=== PATIENT | male | born 1935 | race Caucasian/White ===

== ENCOUNTER 2016-10-12 08:40 | Inpatient (IN) | payer OTHER ==
[~2016-10-12] VITALS: Ht 170.2 cm; Wt 72.7 kg
--- NOTE | ~2016-10-12 | HC ---
[facility] [place] [address] CONSULTATION Name: GIBBSCRISTAL Quinton Room #: 404-P [facility] IN M.R.#: [id number] Admission: 10/12/16 Attend Phys: Alida Mcintosh Discharge: Date of : 33 Report #: [id number] THIS REPORT FOR: //name// CC: Bryn Garcia DATE OF SERVICE: 10/12/2016 HISTORY OF PRESENT ILLNESS: The patient is an 81-year-old male with approximately an 8-week history of diarrhea and intermittent, crampy abdominal pain. He denies any blood in his stools. He apparently had antibiotics last month. He also has had a low-grade fever recently. He has had weight loss of about 10-15 pounds. He denies any nausea or vomiting currently. He was actually scheduled for a colonoscopy by myself on Friday, but due to use continued symptoms and recent fever, he was evaluated in the Emergency Room and has been admitted to Dr. Garcia. PAST MEDICAL HISTORY: Diabetes, history of pulmonary embolus, appendectomy, rectal fistula repair, history of blood clots, had been on Coumadin up until Friday and bilateral inguinal hernia repair. MEDICATIONS: [place]. Coumadin, again, last dose was on Friday. Loperamide p.r.n. ALLERGIES: To PREDNISONE, PERFUME and DYE. REVIEW OF SYSTEMS: As per HPI. SOCIAL HISTORY: He denies any tobacco or alcohol use. FAMILY HISTORY: Negative for colon cancer. PHYSICAL EXAMINATION: VITAL SIGNS: Temperature is 36.4, pulse 75, blood pressure 109/52 and respiratory rate is 16. GENERAL: He is alert and oriented x 3, in no acute distress. HEENT: Sclerae nonicteric. Oropharynx clear. NECK: Supple, without lymphadenopathy. CARDIOVASCULAR: Regular rate and rhythm. CHEST: Clear to auscultation bilaterally. ABDOMEN: Soft. He is mildly tender to palpation, nondistended, positive bowel sounds. EXTREMITIES: No cyanosis, clubbing or edema. LABORATORY DATA: WBC is ____, hemoglobin 14.0 and platelet count is 249. Sodium 130, potassium 3.2, chloride 96, bicarbonate 26, BUN 7, creatinine 0.9, [facility] [address] [place] [address] CONSULTATION Name: CRISTAL GIBBS Room #: 404-P [facility] IN [facility].#: [id number] Admission: 10/12/16 Attend Phys: Alida Mcintosh Discharge: Date of : 33 Report #: [id number] calcium 8.1, total bilirubin is 1.0, AST 17, ALT is 17, alkaline phosphatase 50, total protein 6.3, albumin 2.8 and lipase 114. INR is 2.5. CT scan of the abdomen and pelvis on admission today shows scattered fluid within the colon consistent with a history of diarrhea with some mild relative wall thickening and mucosal enhancement within the rectosigmoid area suggestive of a nonspecific colitis. ASSESSMENT AND PLAN: Chronic diarrhea. CT showing the possibility of a colitis in the rectosigmoid area. Would recommend proceeding with stool studies at this time. Continue to hold Coumadin. We will plan on colonoscopy in the near future. We will need his INR more towards normal. We will repeat INR tomorrow. If it remains elevated, may consider a small dose of vitamin K and possible colonoscopy on Friday. Thank you for allowing me to participate in his care. <ELECTRONICALLY SIGNED> By: Jesse Hallman MD 10/13/16 1217 1444 2331 Jesse Hallman MD /nt
--- NOTE | ~2016-10-12 | D ---
[facility] [place] [address] DISCHARGE SUMMARY Name: SAICRISTAL Quinton Room #: 404-P [facility] IN M.R.#: [id number] Admission: 10/12/16 Attend Phys: Alida Mcintosh Discharge: 10/17/16 Date of : 33 Report #: [id number] THIS REPORT FOR: //name// CC: Anjum Garcia FINAL DIAGNOSES: 1. Clostridium difficile colitis. 2. Hypercoagulable state. HOSPITAL COURSE: The patient was admitted with anorexia and diarrhea. GI service assessed him. He was diagnosed with C. diff colitis. Currently, the plan is medical treatment and defer endoscopy to a later time. With oral vancomycin, his symptoms improved. His stools had not returned to normal, but he was no longer having watery diarrhea with pain, but rather soft stools 2-3 times a day. He was tolerating a regular diet performing with physical therapy; however, because he still had some weakness in and out of bed and was having frequent bowel movements, he did not feel comfortable going home. Arrangements were made for assisted. PHYSICAL EXAMINATION: GENERAL: On the day of discharge, he was resting comfortably in bed with stable vital signs and afebrile. LUNGS: Clear. HEART: Regular. ABDOMEN: Soft. EXTREMITIES: Showed no edema. DISPOSITION: To be transferred to advanced assisted facility. I will follow his stay there. He will be on oral vancomycin for 2 weeks, Coumadin 2 mg a day, acidophilus, Tylenol, Zofran as needed. PT and OT to assess. <ELECTRONICALLY SIGNED> By: Oj Grady MD 10/18/16 0835 0903 1032 Oj Grady MD /nt
--- NOTE | ~2016-10-12 | H ---
[facility] [place] [address] HISTORY AND PHYSICAL Name: CRISTAL GIBBS Room #: 404-P ADM IN M.R.#: [id number] Admission: 10/12/16 Attend Phys: Alida Mcintosh Discharge: Date of : 33 Report #: [id number] THIS REPORT FOR: //name// CC: Anjum Garcia DATE OF SERVICE: 10/13/2016 CHIEF COMPLAINT: This is an 81-year-old male with diarrhea. HISTORY OF PRESENT ILLNESS: This is an 81-year-old gentleman who I have been following now for the last few weeks as an outpatient with diarrhea, weight loss and we were trying to get him to consent to sigmoidoscopy to make the diagnosis the reason for what was suspected to be colitis, but he has issues at home with his who is infirmed and he could not get this accomplished. He then called me over the weekend and said he was having fevers and chills, at which point I recommended admission. The patient has had some chronic diarrhea now for a couple of months and weight loss, no evidence of any GI blood loss. He is now complaining of some left lower quadrant abdominal pain. PAST MEDICAL HISTORY: Significant for past history of hypercoagulable states and he has been on chronic Coumadin for many, many years. He has had an appendectomy. He has had inguinal hernia repair bilaterally. He has also had some foot surgery and has some hyperglycemia. MEDICATIONS: List was only Coumadin. ALLERGIES: INCLUDE PREDNISONE, NOT SURE OF THE DETAILS OF THAT; FABRIC DYES AND PERFUME. FAMILY HISTORY: Noncontributory. SOCIAL HISTORY: He does not smoke or drink. He lives independently. He cares for his . REVIEW OF SYSTEMS: Otherwise, negative. PHYSICAL EXAMINATION: GENERAL: Shows him to be awake, alert, oriented. He is in no distress, but he looks weakened. VITAL SIGNS: Stable. HEENT: Otherwise, negative. NECK: Supple, without thyromegaly or adenopathy. CHEST: Clear. CARDIOVASCULAR: Shows a regular rate and rhythm without murmur. ABDOMEN: Soft. Bowel sounds are present. There is a little mild amount of left lower quadrant tenderness on palpation. There were no masses. There was [facility] [address] [place] [address] HISTORY AND PHYSICAL Name: CRISTAL GIBBS Room #: 404-P [facility] IN [facility].#: [id number] Admission: 10/12/16 Attend Phys: Alida Mcintosh Discharge: Date of : 33 Report #: [id number] no rebound tenderness. EXTREMITIES: No cyanosis, clubbing or edema. NEUROLOGIC: Nonfocal. LABORATORY PARAMETERS: Blood count and chemistry panel were negative. CT imaging confirms a suspicion for colitis in the sigmoid area. ASSESSMENT: This is an 81-year-old who has colitis and at this point seems most likely to be an inflammatory condition. Whether this represents ulcerative colitis or microscopic colitis is not clear. We need sigmoidoscopy in order to visualize the lining of the mucosa. This seems unlikely to be diverticulitis at this time. He is admitted, IV fluids. GI consult for endoscopy. <ELECTRONICALLY SIGNED> By: Anjum Garcia MD 10/16/16 1244 0743 1018 Anjum Garcia MD /nt
[~2016-10-12 08:40] MED LIST: ANTI-DIARRHEAL2 MG PO; COUMADIN 10MG T10 M1 PO; COUMADIN 1MG TAB1 M1 PO; ENOXAPARIN80 MG/0.1 SUBQ; LORTAB 5 MG/5001 TA1 PO; NORCO 5-325 TA1 EACH PO
[2016-10-12 08:46] VITALS: BP 103/58
[2016-10-12 09:39] LABS: HEMATOCRIT 41.1 % (42.0-52.0); MANUAL DIFF YES; MCH 29.3 pg (26.0-34.0); MCV 86.2 fL (80.0-100.0); PLATELET COUNT 249 thou/uL (150-400); RBC 4.76 mil/uL (4.50-6.00); RDW 13.5 % (10.5-14.5)
[2016-10-12 09:49] LABS: CALCIUM 8.1 mg/dL (8.5-10.1); CREATININE 0.9 mg/dL (0.7-1.3); POTASSIUM 3.2 mmol/L (3.5-5.1)
[2016-10-12 09:53] LABS: ALBUMIN 2.8 g/dL (3.4-5.0); DIRECT BILIRUBIN 0.2 mg/dL (<0.1-0.3); TOTAL PROTEIN 6.3 g/dL (6.4-8.2)
[2016-10-12 11:14] LABS: ABSOLUTE NEUTROPHILS 7.7 thou/uL (1.4-8.2); TOTAL CELL COUNT 100
[2016-10-12 11:56] LABS: APTT 36.9 Seconds (24.5-32.8); INR 2.5
[2016-10-12 12:00] VITALS: BP 109/52
[2016-10-12 17:00] VITALS: BP 126/61
[2016-10-12 19:28] VITALS: BP 138/62
[2016-10-13] VITALS: BP 120/56
[2016-10-13 06:32] VITALS: BP 126/53
[2016-10-13 08:00] VITALS: BP 113/52
[2016-10-13 10:15] LABS: HEMATOCRIT 36.7 % (42.0-52.0); HEMOGLOBIN 12.4 gm/dL (14.0-18.0); MCH 29.3 pg (26.0-34.0); MCHC 33.9 g/dL (28.0-37.0); MCV 86.4 fL (80.0-100.0); RBC 4.25 mil/uL (4.50-6.00); RDW 13.4 % (10.5-14.5); WBC 14.1 thou/uL (4.0-11.0)
[2016-10-13 10:32] LABS: ALBUMIN 2.2 g/dL (3.4-5.0); CALCIUM 7.6 mg/dL (8.5-10.1); CREATININE 1.1 mg/dL (0.7-1.3); POTASSIUM 3.4 mmol/L (3.5-5.1); TOTAL BILIRUBIN 0.8 mg/dL (<0.1-1.0); TOTAL PROTEIN 5.2 g/dL (6.4-8.2)
[2016-10-13 16:00] VITALS: BP 102/46
[2016-10-13 19:33] VITALS: BP 107/50
[2016-10-13 23:24] VITALS: BP 97/47
[2016-10-14 03:28] VITALS: BP 106/52
[2016-10-14 06:01] LABS: PROTIME 42.1 Seconds (9.3-11.4)
[2016-10-14 06:02] LABS: INR 4.1
[2016-10-14 06:04] LABS: CALCIUM 7.6 mg/dL (8.5-10.1); POTASSIUM 3.6 mmol/L (3.5-5.1)
[2016-10-14 07:50] VITALS: BP 103/55
[2016-10-14 15:57] VITALS: BP 107/54
[2016-10-14 19:49] VITALS: BP 115/60
[2016-10-15 03:40] VITALS: BP 117/56
[2016-10-15 06:22] LABS: HEMATOCRIT 36.5 % (42.0-52.0); MCH 28.7 pg (26.0-34.0); MCHC 32.9 g/dL (28.0-37.0); RBC 4.2 mil/uL (4.50-6.00); WBC 13.6 thou/uL (4.0-11.0)
[2016-10-15 06:38] LABS: CALCIUM 7.4 mg/dL (8.5-10.1); CREATININE 0.7 mg/dL (0.7-1.3); POTASSIUM 3.2 mmol/L (3.5-5.1)
[2016-10-15 08:00] VITALS: BP 106/54
[2016-10-15 12:52] LABS: INR 2.6
[2016-10-15 16:00] VITALS: BP 115/59
[2016-10-15 20:00] VITALS: BP 114/57
[2016-10-16 04:00] VITALS: BP 114/54
[2016-10-16 07:08] LABS: INR 2.2; PROTIME 22.8 Seconds (9.3-11.4)
[2016-10-16 07:10] LABS: CALCIUM 7.3 mg/dL (8.5-10.1); CREATININE 0.8 mg/dL (0.7-1.3); POTASSIUM 3.4 mmol/L (3.5-5.1)
[2016-10-16 08:22] VITALS: BP 109/55
[2016-10-16] MEDS ORDERED: ACETAMINOPHEN325 M1 PO (12:44)
[2016-10-16] MEDS ORDERED: VANCOMYCIN100 MG/M1 PO (12:44)
[2016-10-16] MEDS ORDERED: COUMADIN 1MG TAB1 M1 PO (12:44)
[2016-10-16 16:00] VITALS: BP 128/72
[2016-10-16 19:24] VITALS: BP 136/88
[2016-10-17 06:14] LABS: INR 1.8; PROTIME 18.9 Seconds (9.3-11.4)
[2016-10-17 06:16] LABS: CALCIUM 7.4 mg/dL (8.5-10.1); CREATININE 0.7 mg/dL (0.7-1.3)
[2016-10-17 08:00] VITALS: BP 119/73
[2016-10-17] MEDS ORDERED: ZOFRAN 4 MG ORAL4 MG DISSOLVE (08:52)
[2016-10-17] MEDS ORDERED: ACIDOPHILUS1 EAC4 PO (08:52)
[2016-10-17] MEDS ORDERED: COUMADIN 1MG TAB1 M1 PO (09:03)
== END 2016-10-17 13:24 | DRG 871 ==
LOC: ER 08:40 → EROBS 11:06 → 4N 11:06
PROVIDERS: Emergency Medicine; Internal Medicine; Internal Medicine Geriatric Medicine
DX: A41.9 Sepsis, unspecified organism (principal); E43 Unspecified severe protein-calorie malnutrition; A04.7 Enterocolitis due to Clostridium difficile; D68.59 Other primary thrombophilia; E11.9 Type 2 diabetes mellitus without complications; K52.9 Noninfective gastroenteritis and colitis, unspecified; Z90.49 Acquired absence of other specified parts of digestive tract; Z86.711 Personal history of pulmonary embolism; Z88.8 Allergy status to other drugs, medicaments and biological substances; Z91.041 Radiographic dye allergy status; Z79.01 Long term (current) use of anticoagulants
CPT/HCPCS: 10790

== ENCOUNTER 2016-11-10 18:06 | Inpatient (IN) | payer OTHER ==
[~2016-11-10] VITALS: Ht 172.7 cm; Wt 72.8 kg
--- NOTE | ~2016-11-10 | EKG ---
[address] [address] ELECTROCARDIOGRAM REPORT Name: CRISTAL GIBBS Room #: 202-P ADM IN M.R.#: [id number] Admission: 11/10/16 Attend Phys: Alida Mcintosh Discharge: Date of : 33 Report #: [id number] THIS REPORT FOR: //name// [facility] Test Date: 2016-11-11 Test Time: 07:11:25 Pat Name: CRISTAL GIBBS Department: Room: 202 P Gender: M Gastrointestinal Technician: valerie : 1935 Requested By: Ever Ramesh Order Number: [id number] MD: Ever Ramesh Measurements Intervals [place] Rate: 36 P: 0 VT: 524 QRS: 78 QRSD: 87 T: 56 QT: 640 QTc: 496 Interpretive Statements Sinus rhythm with third degree heart block Electronically Signed On 11-11-2016 17:57:39 CDT by Ever Ramesh [email or web address] <ELECTRONICALLY SIGNED> By: Ever Ramesh MD 11/11/16 1757 0711 07 MD ASHA Holloway
--- NOTE | ~2016-11-10 | EKG ---
[address] [address] ELECTROCARDIOGRAM REPORT Name: CRISTAL GIBBS Room #: 202-P ADM IN M.R.#: [id number] Admission: 11/10/16 Attend Phys: Alida Mcintosh Discharge: Date of : 33 Report #: [id number] THIS REPORT FOR: //name// [facility] ED Test Date: 2016-11-10 Test Time: 18:09:48 Pat Name: CRISTAL GIBBS Department: Room: 202 Gender: M Chief Solution Architect: ALEJANDRO : 1935 Requested By: Jane Herrera Order Number: [id number] MD: Ever Ramesh Measurements Intervals [place] Rate: 39 P: 51 MO: QRS: 81 QRSD: 92 T: 70 QT: 622 QTc: 502 Interpretive Statements AV block, complete (third degree) Borderline right axis deviation Prolonged QT interval Compared to ECG 09/26/2015 17:09:10 Prolonged QT interval now present Sinus rhythm no longer present Electronically Signed On 11-10-2016 22:08:54 CDT by Ever Ramesh [email or web address] <ELECTRONICALLY SIGNED> By: Ever Ramesh MD 11/10/16 2208 180 08 Ever Ramesh MD /EPI
--- NOTE | ~2016-11-10 | HC ---
[facility] [place] [address] CONSULTATION Name: CRISTAL GIBBS Room #: 202-P ADM IN M.R.#: [id number] Admission: 11/10/16 Attend Phys: Alida Mcintosh Discharge: Date of : 33 Report #: [id number] THIS REPORT FOR: //name// CC: [facility] REASON FOR CONSULTATION: Heart block. HISTORY OF PRESENT ILLNESS: The patient is an 81-year-old male with no known cardiac history. Recently, he was in the hospital with C. difficile, did a stint in rehabilitation and he has been home for a week or so. Apparently, over the past several days, he has noticed progressive exertional dyspnea, some lightheadedness and fatigue. He has also noted that his blood pressure and heart rate have been low. He came to the ER and was found to be in complete heart block. REVIEW OF SYSTEMS: GENERAL: No fevers or chills. HEENT: No blurred vision. CARDIOVASCULAR: As above. PULMONARY: No productive cough. GASTROINTESTINAL: Diarrhea is resolved. GENITOURINARY: Dysuria. ENDOCRINE: No heat or cold intolerance. NEUROLOGIC: No focal weakness or headaches. PAST MEDICAL HISTORY: Includes: 1. Diabetes. 2. Recurrent pulmonary embolus, first one was 01/15, on chronic warfarin therapy. 3. Recent C. difficile colitis. 4. Prior hernia repair. ALLERGIES: Include PREDNISONE, PERFUME and DYES, but not IV dye. MEDICATIONS: He is not on any beta blockers or any AV radha blocking agents. He is on warfarin. PHYSICAL EXAMINATION: VITAL SIGNS: Temperature is 36.4, pulse 37, respiratory rate 21, blood pressure 110/47 and saturating 97%. GENERAL: He is in no acute distress, but appears somewhat lethargic. HEENT: Sclerae anicteric. Oropharynx is clear. NECK: Supple, with no thyromegaly. HEART: Bradycardic and slightly irregular. He does have elevated jugular [facility] [address] [place] [address] CONSULTATION Name: CRISTAL GIBBS uQinton Room #: 202-P [facility] IN .R.#: [id number] Admission: 11/10/16 Attend Phys: Alida Mcintosh Discharge: Date of : 33 Report #: [id number] venous pressure and positive hepatojugular reflex. LUNGS: Clear to auscultation bilaterally. ABDOMEN: Soft, nontender and nondistended. EXTREMITIES: There is 2+ lower extremity edema. Pulses are 2+ throughout. NEUROLOGIC: Cranial nerves 2-12 are intact. LABORATORY DATA: White count 8.3, hemoglobin 12.6 and platelets 166,000. INR is 3.5. Potassium is 4.1, BUN 19, creatinine 1.1. Magnesium 2.1. Troponin 0.74. ProBNP is 4829. Chest x-ray shows a normal cardiac size. There is some mild cephalization noted. His 12-lead EKG shows normal sinus rhythm with complete heart block with a nice narrow escape rhythm and no ischemic changes. ASSESSMENT: 1. Complete heart block. 2. Acute diastolic heart failure secondary to complete heart block. 3. Elevated troponin of unclear etiology. 4. Recent Clostridium difficile colitis. 5. Recurrent pulmonary emboli, on warfarin therapy. SUMMARY: In summary, the patient is an 81-year-old with new-onset complete heart block. He is not on any meds that could be explaining this. As such, I have recommended that he will require dual-chamber pacemaker implantation either tomorrow or Friday. We will reverse his warfarin therapy. I have ordered an echocardiogram. For his diastolic dysfunction and diastolic heart failure from his heart block, I will give him a dose of IV Lasix to hopefully improve some of his breathing. We will continue to follow. <ELECTRONICALLY SIGNED> By: Ever Ramesh MD 11/11/16 1551 08 0059 Ever Ramesh MD /nt
--- NOTE | ~2016-11-10 | D ---
[facility] [place] [address] DISCHARGE SUMMARY Name: CRISTAL GIBBS Room #: 202-P [facility] IN M.R.#: [id number] Admission: 11/10/16 Attend Phys: Alida Mcintosh Discharge: 11/13/16 Date of : 33 Report #: [id number] THIS REPORT FOR: //name// CC: Anjum Ramesh DATE OF SERVICE: 11/13/2016 FINAL DIAGNOSES: 1. Complete heart block. 2. Acute diastolic congestive heart failure. 3. Hypercoagulable state. HOSPITAL COURSE: The patient was admitted with shortness of breath and was found to be in complete heart block with bradycardia and symptoms of diastolic heart failure related to the above. He was stabilized by Cardiology and subsequently taken for a pacemaker implant. Please see that separately dictated report. He was treated with a few doses of IV Lasix. He had no other interval complication. PHYSICAL EXAMINATION: GENERAL: On the day of discharge, he was up and walking the halls x 3. VITAL SIGNS: Stable. LUNGS: Clear. HEART: Regular. ABDOMEN: Soft. EXTREMITIES: Showed no edema. DISPOSITION: To be discharged to home with diet and activity as tolerated, resume all home medications plus Coumadin 2 mg a day. Home health with INR in 1 week. Follow up with Dr. Ramesh 1 week, Dr. Garcia in 2 weeks. <ELECTRONICALLY SIGNED> By: Oj Grady MD 11/14/16 1047 1354 1836 Oj Grady MD /arti
--- NOTE | ~2016-11-10 | 2DMMODE ---
[facility] [address] [place] [address] 2 D/M-MODE ECHOCARDIOGRAM Name: CRISTAL GIBBS Room #: 202-P ADM IN .R.#: [id number] Admission: 11/10/16 Attend Phys: Anjum Mock Discharge: Date of : 31 Date of Service: 11/11/16 1247 Report #: [id number] THIS REPORT FOR: //name// APPROVED REPORT Study performed: 11/11/2016 08:55:02 EXAM: Comprehensive 2D, Doppler, and color-flow Echocardiogram Patient Location: Bedside Room #: 202 Status: routine Other Information Study Quality: Adequate Indications Congestive Heart Failure 2D Dimensions LVEF(%): 64.64 (>50%) IVSd: 9.16 (7-11mm) LVOT Diam: 23.36 (18-24mm) LVDd: 51.32 mm PWd: 8.73 (7-11mm) Ascending Ao: 36.51 (22-36mm) LVDs: 33.09 (25-40mm) Aortic Root: 36.24 mm Durbin's LVEF: 64.64 % Aortic Valve AoV Peak Amrit.: 1.62 m/s AO Peak Gr.: 10.44 mmHg LVOT Max P.61 mmHg LVOT Max V: 1.47 m/s AMELIE Vmax: 3.89 cm2 Mitral Valve E/A Ratio: 1.1 MV Decel. Time: 317.96 ms MV E Max Amrit.: 0.73 m/s MV A Amrit.: 0.64 m/s MV PHT: 92.21 ms IVRT: 101.50 ms Pulmonary Valve PV Peak Amrit.: 1.23 m/s PV Peak Gr.: 6.09 mmHg Pulmonary Vein [facility] [place] [address] [place] [address] 2 D/M-MODE ECHOCARDIOGRAM Name: CRISTAL GIBBS Room #: 202-P [facility] IN ..#: [id number] Admission: 11/10/16 Attend Phys: Anjum Mock Discharge: Date of : 33 Date of Service: 11/11/16 1247 Report #: [id number] P Vein S: 0.40 m/s P Vein A: 0.40 m/s P Vein D: 0.31 m/s P Vein A Dur.: 120.0 msec P Vein S/D Ratio: 1.29 Tricuspid Valve TR Peak Amrit.: 2.55 m/s TR Peak Gr.: 26.07 mmHg Left Ventricle The left ventricle is normal size. There is normal LV segmental wall motion. There is normal left ventricular wall thickness. The left ventricular systolic function is normal. The left ventricular ejection fraction is within the normal range. LVEF is 55-60%. Unable to assess Right Ventricle The right ventricle is normal size. The right ventricular systolic function is normal. Atria The left atrium size is normal. The right atrium size is normal. Aortic Valve The aortic valve is mildly calcified No aortic regurgitation is present. There is no aortic valvular stenosis. Mitral Valve The mitral valve is normal in structure. Trace to mild mitral regurgitation. No evidence of mitral valve stenosis. Tricuspid Valve The tricuspid valve is normal in structure. There is mild tricuspid regurgitation. The right atrial pressure is estimated at mmHg. There is no pulmonary hypertension.The estimated PAP was 26 mmHg. Plus the right atrial pressure. Pulmonic Valve The pulmonary valve is normal in structure. There is no pulmonic valvular regurgitation. Great Vessels The aortic root is normal in size. IVC is not well visualized. Pericardium [address] [address] 2 D/M-MODE ECHOCARDIOGRAM Name: CRISTAL GIBBS Room #: 202-P [facility] IN .R.#: [id number] Admission: 11/10/16 Attend Phys: Anjum Mock Discharge: Date of : 31 Date of Service: 11/11/16 1247 Report #: [id number] There is no pericardial effusion. <Conclusion> The left ventricular systolic function is normal. There is normal LV segmental wall motion. LVEF 55-60%. The aortic valve is mildly calcified. There is no aortic valvular stenosis or insufficiency. The mitral valve is normal in structure. Trace to mild mitral regurgitation. Pulmonary artery pressure of 30mmhg There is no pericardial effusion. <ELECTRONICALLY SIGNED> By: Gómez Lemus MD, FACC 11/11/16 1247 46 46 Gómez Lemus MD, FACC /INF
[~2016-11-10 18:06] MED LIST changes: +ACETAMINOPHEN325 M1 PO; +ACIDOPHILUS1 EAC4 PO; +VANCOMYCIN100 MG/M1 PO; +ZOFRAN 4 MG ORAL4 MG DISSOLVE
[2016-11-10 18:17] VITALS: BP 148/67
[2016-11-10 18:36] LABS: HEMATOCRIT 37.8 % (42.0-52.0); HEMOGLOBIN 12.6 gm/dL (14.0-18.0); MCH 29.5 pg (26.0-34.0); MCHC 33.4 g/dL (28.0-37.0); MCV 88.2 fL (80.0-100.0); PLATELET COUNT 166 thou/uL (150-400); RBC 4.29 mil/uL (4.50-6.00); RDW 15.4 % (10.5-14.5); WBC 8.3 thou/uL (4.0-11.0)
[2016-11-10 18:40] LABS: MANUAL DIFF YES
[2016-11-10 18:45] LABS: CALCIUM 8.3 mg/dL (8.5-10.1); CREATININE 1.1 mg/dL (0.7-1.3); POTASSIUM 4.1 mmol/L (3.5-5.1)
[2016-11-10 18:51] LABS: APTT 35.6 Seconds (24.5-32.8); INR 3.5; PROTIME 36.3 Seconds (9.3-11.4)
[2016-11-10 18:56] LABS: MAGNESIUM 2.1 mg/dL (1.8-2.4)
[2016-11-10 19:06] LABS: TROPONIN-I 0.74 ng/mL (<0.04-0.07)
[2016-11-10 19:21] LABS: ABSOLUTE NEUTROPHILS 2.1 thou/uL (1.4-8.2); TOTAL CELL COUNT 100
[2016-11-10 20:35] VITALS: BP 146/58
[2016-11-11 04:27] VITALS: BP 130/51
[2016-11-11 07:10] VITALS: BP 118/49
[2016-11-11 08:41] LABS: INR 2.3; PROTIME 23.5 Seconds (9.3-11.4)
[2016-11-11 11:20] VITALS: BP 117/41
[2016-11-11 13:26] LABS: PROTIME 20.6 Seconds (9.3-11.4)
[2016-11-11 15:20] VITALS: BP 118/46
[2016-11-11 17:28] LABS: INR 1.8; PROTIME 18.7 Seconds (9.3-11.4)
[2016-11-11 20:35] VITALS: BP 159/87
[2016-11-12 00:17] VITALS: BP 119/55
[2016-11-12 03:28] VITALS: BP 120/60
[2016-11-12 08:20] VITALS: BP 139/63
[2016-11-12 11:30] VITALS: BP 128/55
[2016-11-12 16:20] VITALS: BP 123/54
[2016-11-12 19:23] VITALS: BP 132/66
[2016-11-13 03:00] VITALS: BP 106/58
[2016-11-13 07:35] LABS: CALCIUM 8.2 mg/dL (8.5-10.1); CREATININE 0.8 mg/dL (0.7-1.3); POTASSIUM 3.4 mmol/L (3.5-5.1)
[2016-11-13 07:50] VITALS: BP 145/64
[2016-11-13 12:12] VITALS: BP 139/58
[2016-11-13] MEDS ORDERED: COUMADIN 1MG TAB1 M1 PO ×2 (13:47→13:52)
[2016-11-13 14:19] VITALS: BP 139/58
[2016-11-13 14:32] VITALS: BP 139/58
== END 2016-11-13 15:24 | disposition home health service (06) | DRG 242 ==
LOC: ER 18:06 → EROBS 19:24 → 2N 19:24
PROVIDERS: Emergency Medicine; Internal Medicine Cardiovascular Disease
PROC: 02H63JZ Insertion of Pacemaker Lead into Right Atrium, Percutaneous Approach (ICD-10-PCS; principal; 2016-11-11)
PROC: 02HK3JZ Insertion of Pacemaker Lead into Right Ventricle, Percutaneous Approach (ICD-10-PCS; principal; 2016-11-11)
PROC: 0JH606Z Insertion of Pacemaker, Dual Chamber into Chest Subcutaneous Tissue and Fascia, Open Approach (ICD-10-PCS; principal; 2016-11-11)
DX: I44.2 Atrioventricular block, complete (principal); I50.31 Acute diastolic (congestive) heart failure; D68.59 Other primary thrombophilia; E11.9 Type 2 diabetes mellitus without complications; Z88.8 Allergy status to other drugs, medicaments and biological substances; Z91.048 Other nonmedicinal substance allergy status; Z79.899 Other long term (current) drug therapy; Z86.711 Personal history of pulmonary embolism; Z79.01 Long term (current) use of anticoagulants; Z90.49 Acquired absence of other specified parts of digestive tract; Z85.828 Personal history of other malignant neoplasm of skin; Z87.891 Personal history of nicotine dependence; Z86.718 Personal history of other venous thrombosis and embolism
CPT/HCPCS: 10081; 62110; 62900; 70005

== ENCOUNTER → 2019-02-17 | Outpatient (CLI) | payer OTHER ==
--- NOTE | 2019-02-17 16:13 | 2DMMODE ---
[facility] [place] [address] 2 D/M-MODE ECHOCARDIOGRAM Name: CRISTAL GIBBS Room #: REG CL [facility]#: [id number] ������������� Admission: 02/17/19 ������������� Attend Phys: Ever Ramesh Discharge: ��� ������������� ��� Date of : 31 �������������������� �� Report #: [id number] �������� ��������������������������������������������[id number] THIS REPORT FOR: //name// APPROVED REPORT Study performed: 02/17/2019 15:06:26 EXAM: Comprehensive 2D, Doppler, and color-flow Echocardiogram Patient Location: Out-Patient Status: routine BSA: 1.83 HR: 60 bpm BP: 150/80 mmHg Rhythm: Pacemaker Other Information Study Quality: Good Indications Complete heart block. 2D Dimensions RVDd: 36.53 mm IVSd: 12.93 (7-11mm) LVOT Diam: 23.26 (18-24mm) LVDd: 41.71 mm PWd: 9.87 (7-11mm) Ascending Ao: 37.79 (22-36mm) LVDs: 28.70 (25-40mm) Aortic Root: 38.12 mm Volumes Left Atrial Volume (Systole) Single Plane 4CH: 49.51 mL Single Plane 2CH: 68.81 mL LA ESV Index: 35.00 mL/m2 Aortic Valve AoV Peak Amrit.: 2.21 m/s AO Peak Gr.: 19.48 mmHg LVOT Max P.39 mmHg AO Mean Gr.: 12.56 mmHg AO V2 Mean: 1.72 m/s LVOT Max V: 0.92 m/s AO V2 VTI: 52.33 cm AMELIE Vmax: 1.77 cm2 Mitral Valve E/A Ratio: 0.6 [facility] [address] [place] [address] 2 D/M-MODE ECHOCARDIOGRAM Name: CRISTAL GIBBS Room #: REG [facility]#: [id number] ������������� Admission: 02/17/19 ������������� Attend Phys: Ever Cottrellnnbrody Discharge: ��� ������������� ��� Date of : 31 �������������������� �� Report #: [id number] �������� ��������������������������������������������[id number] MV Decel. Time: 333.27 ms MV E Max Amrit.: 0.52 m/s MV A Amrit.: 0.84 m/s MV PHT: 96.65 ms IVRT: 115.34 ms Pulmonary Valve PV Peak Amrit.: 1.06 m/s PV Peak Gr.: 4.49 mmHg Pulmonary Vein P Vein S: 0.48 m/s P Vein A: 0.31 m/s P Vein D: 0.28 m/s P Vein A Dur.: 138.4 msec P Vein S/D Ratio: 1.71 Tricuspid Valve TR Peak Amrit.: 2.52 m/s RAP Estimate: 5.00 mmHg TR Peak Gr.: 25.35 mmHg PA Pressure: 30.00 mmHg Left Ventricle The left ventricle is normal size. Mild basal septal hypertrophy is present. Left ventricular systolic function is low normal. LVEF is 50%. Mild diastolic dysfunction is present (impaired relaxation pattern). Right Ventricle The right ventricle is normal size. The right ventricular systolic function is normal. Pacemaker lead is present in the right ventricle. Atria Left atrium is mildly dilated. The right atrium size is normal. Aortic Valve Aortic valve is moderately calcified. Mild aortic regurgitation. There is mild valvular aortic stenosis. Calculated aortic valve area is 1.8 cm2 with maximum pressure gradient of 20 mmHg and mean pressure gradient of 13 mmHg. Mitral Valve The mitral valve is normal in structure. Mild mitral annular calcification. Mild mitral regurgitation. Tricuspid Valve The tricuspid valve is normal in structure. Moderate tricuspid regurgitation. Estimated PAP is 30-35mmHg. [address] [address] 2 D/M-MODE ECHOCARDIOGRAM Name: GIBBSCRISTAL Quinton Room #: REG CL [facility]#: [id number] ������������� Admission: 02/17/19 ������������� Attend Phys: [facility] Discharge: ��� ������������� ��� Date of : 31 �������������������� �� Report #: [id number] �������� ��������������������������������������������[id number] Pulmonic Valve The pulmonary valve is normal in structure. Mild pulmonic regurgitation. Great Vessels Aortic root is borderline dilated. The ascending aorta is borderline dilated. IVC is normal in size and collapses >50% with inspiration. Pericardium There is no pericardial effusion. <Conclusion> The left ventricle is normal size. Mild basal septal hypertrophy is present. Left ventricular systolic function is low normal. LVEF is 50%. Mild diastolic dysfunction is present (impaired relaxation pattern). There is mild valvular aortic stenosis. Calculated aortic valve area is 1.8 cm2 with maximum pressure gradient of 20 mmHg and mean pressure gradient of 13 mmHg. The mitral valve is normal in structure. Mild mitral annular calcification. Mild mitral regurgitation. The tricuspid valve is normal in structure. Moderate tricuspid regurgitation. Estimated PAP is 30-35mmHg. There is no pericardial effusion. ��������������������������������������������� <ELECTRONICALLY SIGNED> ���������������������������������������� By: Ever Ramesh MD ��������������������������������������������� 02/17/19 1613 161 161 Ever Ramesh MD /INF
== END ==
LOC: CV 14:54
DX: I08.8 Other rheumatic multiple valve diseases (principal)

== ENCOUNTER 2019-03-08 11:33 | Emergency (ER) | payer OTHER ==
[~2019-03-08] VITALS: Ht 167.6 cm; Wt 74.8 kg
[2019-03-08] MEDS ORDERED: SENNA8.6 MG PO (11:45)
[2019-03-08 13:24] LABS: ABSOLUTE NEUTROPHILS 4.7 thou/uL (1.4-8.2); BASOPHILS 0.3 % (0.0-2.0); HEMATOCRIT 41.9 % (42.0-52.0); HEMOGLOBIN 13.9 gm/dL (14.0-18.0); LYMPHOCYTES 20.3 % (24.0-44.0); MCH 29.4 pg (26.0-34.0); MCHC 33.1 g/dL (28.0-37.0); MCV 88.6 fL (80.0-100.0); MONOCYTES 10.2 % (1.0-8.0); PLATELET COUNT 222 thou/uL (150-400); POLYS 68.2 % (36.0-66.0); RBC 4.74 mil/uL (4.50-6.00); RDW 13.7 % (10.5-14.5); WBC 6.8 thou/uL (4.0-11.0)
[2019-03-08 13:26] LABS: CALCIUM 9.2 mg/dL (8.5-10.1); CREATININE 0.8 mg/dL (0.7-1.3); POTASSIUM 4.1 mmol/L (3.5-5.1)
[2019-03-08 13:33] LABS: ALBUMIN 3.5 g/dL (3.4-5.0); DIRECT BILIRUBIN 0.2 mg/dL (<0.1-0.3); TOTAL BILIRUBIN 0.8 mg/dL (<0.1-1.0); TOTAL PROTEIN 7.2 g/dL (6.4-8.2)
[2019-03-08 17:09] VITALS: BP 139/73
[2019-03-08] MEDS ORDERED: KRISTALOSE20 GM PO (17:09)
== END 2019-03-08 17:30 | disposition home or self-care (01) ==
LOC: ER 11:33
PROVIDERS: Emergency Medicine
DX: K59.00 Constipation, unspecified (principal); R10.32 Left lower quadrant pain; E11.9 Type 2 diabetes mellitus without complications; Z86.711 Personal history of pulmonary embolism; Z90.49 Acquired absence of other specified parts of digestive tract; Z85.828 Personal history of other malignant neoplasm of skin; Z91.041 Radiographic dye allergy status; Z88.8 Allergy status to other drugs, medicaments and biological substances; Z91.048 Other nonmedicinal substance allergy status; Z87.891 Personal history of nicotine dependence

== ENCOUNTER → 2020-02-24 | Outpatient (CLI) | payer OTHER ==
[~2020-02-24] MED LIST changes: +KRISTALOSE20 GM PO; +SENNA8.6 MG PO
== END ==
LOC: SJCVC 14:08
PROVIDERS: ATTEND Internal Medicine Cardiovascular Disease
DX: Z45.018 Encounter for adjustment and management of other part of cardiac pacemaker (principal); R94.31 Abnormal electrocardiogram [ECG] [EKG]; I45.9 Conduction disorder, unspecified; I44.2 Atrioventricular block, complete; I26.99 Other pulmonary embolism without acute cor pulmonale; Z79.899 Other long term (current) drug therapy; Z87.891 Personal history of nicotine dependence

== ENCOUNTER → 2020-03-24 | Outpatient (CLI) | payer OTHER | LOC: SJCVCIMAG 08:22 | PROVIDERS: ATTEND Internal Medicine Cardiovascular Disease | DX: I65.23 Occlusion and stenosis of bilateral carotid arteries (principal); Z79.899 Other long term (current) drug therapy; Z87.891 Personal history of nicotine dependence ==

== ENCOUNTER → 2021-03-06 | Outpatient (CLI) | payer OTHER | LOC: SJCVCIMAG 13:29 | PROVIDERS: ATTEND Internal Medicine Cardiovascular Disease | DX: R94.31 Abnormal electrocardiogram [ECG] [EKG] (principal); I08.8 Other rheumatic multiple valve diseases; R07.9 Chest pain, unspecified; I44.2 Atrioventricular block, complete; Z95.0 Presence of cardiac pacemaker; Z79.01 Long term (current) use of anticoagulants; Z87.891 Personal history of nicotine dependence ==

== ENCOUNTER → 2021-03-20 | Outpatient (CLI) | payer OTHER | LOC: SJCVCIMAG 11:26 | PROVIDERS: ATTEND Internal Medicine Cardiovascular Disease | DX: I25.89 Other forms of chronic ischemic heart disease (principal) ==

== ENCOUNTER → 2021-03-27 | Outpatient (CLI) | payer OTHER ==
[~2021-03-27] MED LIST changes: +JANTOVEN6 MG PO; +WARFARIN SODIUM5 MG PO
== END ==
LOC: SJCVC 11:45
PROVIDERS: ATTEND Internal Medicine Cardiovascular Disease
DX: R07.9 Chest pain, unspecified (principal); I50.9 Heart failure, unspecified; I44.2 Atrioventricular block, complete; E11.9 Type 2 diabetes mellitus without complications; I26.99 Other pulmonary embolism without acute cor pulmonale; Z79.899 Other long term (current) drug therapy; Z87.891 Personal history of nicotine dependence; Z95.0 Presence of cardiac pacemaker

== ENCOUNTER → 2021-03-29 | Outpatient (CLI) | payer OTHER ==
[~2021-03-29] VITALS: Ht 157.5 cm; Wt 75.7 kg
[2021-03-29 06:58] VITALS: BP 149/64
--- NOTE | 2021-03-29 07:36 | EKG ---
[place] [address] [address] [facility] [place] [address] ELECTROCARDIOGRAM REPORT Name: CRISTAL GIBBS Room #: REG [facility]#: [id number] Admission: 03/29/21 Attend Phys: Jadiel Corona MD, Discharge: Date of : 31 Report #: [id number] [facility] Test Date: 2021-03-29 Test Time: 07:17:08 Pat Name: CRISTAL GIBBS Department: Room: Gender: Signal Repairer: SBULDEV : 1935 Requested By: Jadiel Corona Order Number: [id number] MD: Gómez Lemus Measurements Intervals [place] Rate: 60 P: 12 OK: 193 QRS: -53 QRSD: 175 T: 101 QT: 493 QTc: 493 Interpretive Statements AV sequential pacing No further analysis attempted due to paced rhythm Compared to ECG 11/11/2016 07:11:25 Pacing has replaced complete heart block Electronically Signed On 03-29-2021 7:35:59 CDT by Gómez Lemus [email or web address] <ELECTRONICALLY SIGNED> By: Gómez Lemus MD, [facility] 03/29/2135 6 6 Gómez Lemus MD, FACC /EPI
[2021-03-29 07:52] LABS: INR 1.3; PROTIME 13.6 Seconds (9.3-11.4)
--- NOTE | 2021-03-31 11:25 | CATHLAB ---
[facility] [place] [address] [place] [address] INVASIVE PROCEDURE REPORT Name: CRISTAL GIBBS Room #: REG CLAR[facility] Walt.#: [id number] Admission: 03/29/21 Attend Phys: Jadiel Corona MD, Discharge: Date of : 31 Report #: [id number] THIS REPORT FOR: cc: Anjum Garcia MD, Christopher B. MD Mancuso, Gerald M. MD [facility] ~ APPROVED REPORT Study performed: 03/29/2021 08:04:58 Patient Details Patient Status: Out-Patient Room #: The patient is a 85 year-old male Event Personnel Jadiel Corona Internist, Marilynn Mcgill RN RN, Stephanie Tesfaye RTR Kenneth Marinelli Ja'net RTR Monitor Procedures Performed Left Heart Cath w/or w/o Coronaries 9006119 [facility] Art Access - R femoral artery* 21259 Initial Mod Sed Same Phys/QHP Gr5y 062889 56795 Mod Sed Same Phys/QHP Ea 535977 Hemostasis w/ Mynx Abdominal Aortography 691663 Indication Chest pain Procedure Narrative The Right Groin^ was infiltrated with 1% Lidocaine subcutaneous anesthesia. A PINNACLE 6FR Sheath #[id number] sheath was inserted into the RFA^. Coronary angiography was performed using coronary diagnostic catheters. The right coronary system was accessed and visualized with a JR4 catheter. The left coronary system was accessed and visualized with a JL4 catheter. The left ventricle was accessed and visualized with a PIGTAIL catheter. An aortogram of the abdominal aorta was performed. Closure device was deployed with a Fr MYNXGRIP 6/7F #[id number]. The patient tolerated the procedure well and there were no complications associated with the procedure. There was no hematoma. Intraoperative Conscious Sedation Sedation start time: 8:44 Case end Time: 9:21 Fentanyl 75 mcg Versed 1 mg [facility] [place] [place] [address] INVASIVE PROCEDURE REPORT Name: CRISTAL GIBBS Room #: [facility] Zulema#: [id number] Admission: 03/29/21 Attend Phys: Jadiel Corona, Discharge: Date of : 31 Report #: [id number] Fluoro Time: 5.50 minutes Dose: DAP 9546.20 cGycm2 1216 mGy Contrast Type and Amount: Omnipaque 120 ml Hemodynamics The aortic pressure is 162/73 mmHg with a mean of 104 mmHg. The left ventricular pressure is 168/11 mmHg with a mean of mmHg. The left ventricular end diastolic pressure is 35 mmHg. Conclusion #1 normal left ocular size and systolic function EF 55 % #2 abdominal aorta is moderately ecstatic mild calcification no aneurysm. #3 left main moderately calcified distal eccentric narrowing 50% giving rise to LAD and circumflex #4 left [place] moderately disease and calcified but no high-grade occlusive disease multiple diagonal branches moderately diseased #5 nondominant circumflex moderately calcified no occlusive disease #6 dominant right coronary artery moderately calcified 30 to 40% [place] lesion tandem mid distal lesions of 60 to 70% proximal to bifurcation. Posterior descending is mildly diseased. Recommendations plan: continue aggressive risk factor modification. No indication for coronary intervention. <ELECTRONICALLY SIGNED> By: Jadiel Corona MD, FACC 03/31/21 1125 112 Jadiel Corona MD, FACC /INF
== END | disposition home or self-care (01) ==
LOC: CATH 06:30
PROVIDERS: ATTEND Internal Medicine Cardiovascular Disease
DX: R07.9 Chest pain, unspecified (principal); R94.39 Abnormal result of other cardiovascular function study; I25.10 Atherosclerotic heart disease of native coronary artery without angina pectoris; I77.811 Abdominal aortic ectasia; E11.9 Type 2 diabetes mellitus without complications; Z98.890 Other specified postprocedural states; Z79.899 Other long term (current) drug therapy; Z87.891 Personal history of nicotine dependence; Z82.49 Family history of ischemic heart disease and other diseases of the circulatory system; Z86.711 Personal history of pulmonary embolism; Z79.01 Long term (current) use of anticoagulants